=== PATIENT | female | born 1985 | race Caucasian/White ===

== ENCOUNTER 2017-01-16 12:18 | Emergency (ER) | payer MEDICAID, OTHER ==
[~2017-01-16] VITALS: Ht 162.6 cm; Wt 100.0 kg
[~2017-01-16 12:18] MED LIST: CITA40TA12 PO; METH-356 PO; OXYC15TA PO; PREG100C PO; TIZA6CAP PO
[2017-01-16 12:19] VITALS: BP 142/92
== END 2017-01-16 13:05 | disposition home or self-care (01) ==
LOC: ED 12:59
DX: J02.0 Streptococcal pharyngitis (principal); J04.0 Acute laryngitis
CPT/HCPCS: 99283

== ENCOUNTER 2019-05-24 06:36 | Emergency (ER) | payer MEDICAID ==
[~2019-05-24] VITALS: Ht 162.6 cm; Wt 109.1 kg
[~2019-05-24 06:36] MED LIST changes: -METH-356 PO; +METH10TA2 PO
[2019-05-24] MEDS ORDERED: ONDANSETRON 2MG/ML, 2ML IVPush ONE (07:30)
[2019-05-24] MEDS ORDERED: SODIUM CHLORIDE FLUSH 10ML SYR IVF ONE (07:30)
[2019-05-24] MEDS ORDERED: LORazepam 2 MG/ML, 1ML IVPush ONE (07:30)
[2019-05-24] MEDS ORDERED: ONDANSETRON 2MG/ML, 2ML ONE (07:44)
[2019-05-24] MEDS ORDERED: LORazepam 2 MG/ML, 1ML ONE (07:45)
[2019-05-24 07:54] LABS: MICROSCOPIC NOT IND
[2019-05-24 08:01] VITALS: BP 131/73
[2019-05-24 08:05] LABS: CULTURE INDICATED? NO
[2019-05-24 08:32] LABS: BASOPHILS % (AUTO) 0 % (0-1); EOSINOPHILS # (AUTO) 0.01 x10^3/uL (0-0.4); EOSINOPHILS % (AUTO) 0 % (1-7); LYMPHOCYTES % (AUTO) 9 % (22-44); MD NO; MEAN CORPUSCULAR HEMOGLOBIN 30.6 pg (27.0-34.8); MEAN CORPUSCULAR HGB CONC 33.6 g/dL (32.4-35.8); MEAN PLATELET VOLUME 8.1 fL (7.4-10.4); MONOCYTES # (AUTO) 0.21 x10^3/uL (0.2-0.8); MONOCYTES % (AUTO) 2 % (2-9); NEUTROPHILS # (AUTO) 10.52 x10^3/uL (1.8-6.8); NEUTROPHILS % (AUTO) 90 % (42-75); PLATELET COUNT 290 x10^3/uL (130-400); RED BLOOD COUNT 4.79 x10^6/uL (3.82-5.3); RED CELL DISTRIBUTION WIDTH 13.3 % (9.6-15.2)
[2019-05-24 08:38] LABS: ALBUMIN 3.6 g/dL (3.4-5.0); ANION GAP 6 mmol/L (5-15); CALCIUM 8.8 mg/dL (8.5-10.1); CHLORIDE 106 mmol/L (98-107)
[2019-05-24 08:44] LABS: ALANINE AMINOTRANSFERASE 25 U/L (12-78); ALKALINE PHOSPHATASE 105 U/L (45-117); BILIRUBIN,TOTAL 0.5 mg/dL (0.2-1.0); CREATININE 0.69 mg/dL (0.55-1.02); TOTAL PROTEIN 8.4 g/dL (6.4-8.2); TROPONIN I < 0.015 ng/mL (0.000-0.045)
--- NOTE | 2019-05-24 09:05 | NUR ---
REPORT FROM CHAIM GORDON. PT CARE RESPONSIBILITIES ASSUMED.
[2019-05-24] MEDS ORDERED: MAGNESIUM CITRATE 300ML ORAL SOL ONE (09:50)
[2019-05-24] MEDS ORDERED: MAGNESIUM CITRATE 300ML ORAL SOL PO ONE (10:00)
== END 2019-05-24 10:24 | disposition home or self-care (01) ==
LOC: ED 10:00
DX: K59.03 Drug induced constipation (principal); R00.2 Palpitations; F41.1 Generalized anxiety disorder; I48.20 Chronic atrial fibrillation, unspecified; I50.1 Left ventricular failure, unspecified; R65.10 Systemic inflammatory response syndrome (SIRS) of non-infectious origin without acute organ dysfunction; G89.29 Other chronic pain; R10.30 Lower abdominal pain, unspecified; R06.00 Dyspnea, unspecified; Z88.5 Allergy status to narcotic agent
CPT/HCPCS: 36415; 74022; 80053; 81003; 84484; 84703; 85025; 93005; 96374; 96375; 99285; J2060; J2405

== ENCOUNTER 2019-07-31 16:36 | Emergency (ER) | payer MEDICAID ==
[~2019-07-31] VITALS: Ht 162.6 cm; Wt 103.2 kg
[2019-07-31 16:42] VITALS: BP 119/85
== END 2019-07-31 18:41 | disposition home or self-care (01) ==
LOC: ED 18:39
DX: R55 Syncope and collapse (principal); M79.18 Myalgia, other site
CPT/HCPCS: 93005; 99283

== ENCOUNTER → 2019-08-16 | Outpatient (CLI) | payer MEDICAID ==
[~2019-08-16] MED LIST changes: -OXYC15TA PO; +OXYC15TA3 PO
== END | disposition home or self-care (01) ==
LOC: CVU 14:18
PROVIDERS: ATTEND Internal Medicine Cardiovascular Disease
DX: R55 Syncope and collapse (principal); R07.89 Other chest pain
CPT/HCPCS: 93306

== ENCOUNTER 2020-01-01 08:53 | Emergency (ER) | payer MEDICAID ==
[~2020-01-01] VITALS: Ht 162.6 cm; Wt 95.1 kg
--- NOTE | 2020-01-01 10:44 | NUR ---
covid sx. extremites cold. "chest palpitations, dizziness, lightheadedness" low fever 100.3 is the highest. wants covid test. Pt in bed with cont hall monitor, spo2, bp q 30. 20 g IV started in right ac.
[2020-01-01 11:08] LABS: BASOPHILS % (AUTO) 0 % (0-1); EOSINOPHILS % (AUTO) 1 % (1-7); LYMPHOCYTES % (AUTO) 14 % (22-44); MEAN CORPUSCULAR HEMOGLOBIN 29.3 pg (27.0-34.8); MEAN CORPUSCULAR HGB CONC 32.6 g/dL (32.4-35.8); MEAN PLATELET VOLUME 8.7 fL (7.4-10.4); MONOCYTES % (AUTO) 5 % (2-9); NEUTROPHILS % (AUTO) 81 % (42-75); PLATELET COUNT 307 x10^3/uL (130-400); RED BLOOD COUNT 4.75 x10^6/uL (3.82-5.3); RED CELL DISTRIBUTION WIDTH 14.2 % (9.6-15.2)
[2020-01-01 11:14] LABS: MD NO
[2020-01-01 11:18] LABS: ALANINE AMINOTRANSFERASE 19 U/L (12-78); ALBUMIN 3.6 g/dL (3.4-5.0); ANION GAP 3 mmol/L (5-15); CALCIUM 9.5 mg/dL (8.5-10.1); CHLORIDE 106 mmol/L (98-107)
[2020-01-01 11:28] LABS: ALKALINE PHOSPHATASE 105 U/L (45-117); BILIRUBIN,TOTAL 0.3 mg/dL (0.2-1.0)
[2020-01-01 13:19] VITALS: BP 124/74
== END 2020-01-01 13:21 | disposition home or self-care (01) ==
LOC: ED 09:52
DX: R07.1 Chest pain on breathing (principal); R10.9 Unspecified abdominal pain; M79.10 Myalgia, unspecified site; R07.89 Other chest pain; R06.02 Shortness of breath; R00.0 Tachycardia, unspecified; I48.91 Unspecified atrial fibrillation; I50.9 Heart failure, unspecified; Z90.89 Acquired absence of other organs
CPT/HCPCS: 36415; 71045; 80053; 84439; 84443; 85025; 85379; 87635; 93005; 99285

== ENCOUNTER → 2020-06-05 | Outpatient (CLI) | payer MEDICAID | END | disposition home or self-care (01) | LOC: CARD 09:49 | PROVIDERS: ATTEND Internal Medicine Cardiovascular Disease | DX: R07.89 Other chest pain (principal); I10 Essential (primary) hypertension | CPT/HCPCS: 93017; 93350 ==